=== PATIENT | male | born 1980 | race Caucasian/White ===

== ENCOUNTER 2020-08-12 21:03 | Emergency (ER) | payer OTHER ==
[~2020-08-12] VITALS: Ht 185.4 cm; Wt 99.8 kg
[2020-08-12 21:20] VITALS: BP_SYST 136; BP_SYST 138; BP_DIAS 86
[2020-08-12] MEDS ORDERED: LIDOCAINE 1% VIAL ONE (21:25)
[2020-08-12] MEDS ORDERED: TRIPLE ANTIBIOTIC OINTMENT TP ONE (21:27)
[2020-08-12 21:28] VITALS: BP_SYST 138
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
[2020-08-12] MEDS ORDERED: ADACEL VIAL IM ONE ×2 (21:30→22:02)
--- NOTE | 2020-08-12 21:34 | NUR ---
LACERATION REPAIR DR. MARK AT BEDSIDE TO CLOSE LACERATION WITH SUTURES.
[2020-08-12] MEDS ORDERED: KEFLEX PO STA (21:55)
[2020-08-12] MEDS ORDERED: KEFLEX PO ONE (22:02)
== END 2020-08-12 22:18 | disposition home or self-care (01) ==
LOC: ER 21:03
DX: S01.511A Laceration without foreign body of lip, initial encounter (principal); S09.90XA Unspecified injury of head, initial encounter; W22.8XXA Striking against or struck by other objects, initial encounter; Y93.89 Activity, other specified; Y92.098 Other place in other non-institutional residence as the place of occurrence of the external cause; Y99.8 Other external cause status
CPT/HCPCS: 12013; 90471; 90715; 99283; J2001

== ENCOUNTER → 2021-03-01 | Outpatient (CLI) | payer OTHER ==
[2021-03-01 10:12] LABS: BASOPHIL % 0.4 % (0.0-0.2); EOSINOPHIL # 0.2 10^3/uL (0.0-0.2); EOSINOPHIL % 2.9 % (0.0-5.0); LYMPHOCYTES # 1.48 10^3/uL1 (1.0-4.8); LYMPHOCYTES % 26.9 % (24.0-44.0); MEAN CORP HGB 29.5 pg (26-34); MONOCYTES # 0.5 10^3/uL (0.3-0.8); MONOCYTES % 9.1 % (5.0-12.0); NEUTROPHIL # 3.3 10^3/uL (1.8-7.7); NEUTROPHILS % 60.5 % (41.0-85.0); PLATELET COUNT 307 10^3/uL (150-400); RED CELL DISTRIBUTION WIDTH 12.7 % (11.5-14.5)
[2021-03-01 10:56] LABS: CALCIUM 8.9 mg/dL (8.4-10.5); CARBON DIOXIDE 27.4 mmol/L (20.0-32)
== END | disposition home or self-care (01) ==
LOC: LAB 09:58
PROVIDERS: ATTEND Nurse Practitioner Adult Health
DX: Z12.5 Encounter for screening for malignant neoplasm of prostate (principal); R53.83 Other fatigue; R68.82 Decreased libido; F34.1 Dysthymic disorder; R03.0 Elevated blood-pressure reading, without diagnosis of hypertension
CPT/HCPCS: 36415; 80053; 80061; 84153; 84403; 84436; 84439; 84443; 85025

== ENCOUNTER → 2021-04-19 | Outpatient (CLI) | payer OTHER | END | disposition home or self-care (01) | LOC: NPLAB 08:06 | PROVIDERS: ATTEND Nurse Practitioner Adult Health | DX: R53.83 Other fatigue (principal); R68.82 Decreased libido | CPT/HCPCS: 36415; 84402; 84403 ==

== ENCOUNTER 2021-06-10 18:01 | Emergency (ER) | payer OTHER ==
[2021-06-10] VITALS (7 sets, daily range): BP systolic 143–191; BP diastolic 75–86
[~2021-06-10] VITALS: Ht 185.4 cm; Wt 99.8 kg
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
--- NOTE | 2021-06-10 18:35 | NUR ---
Patient to CT scan, transported on wheelchair by Electrical Systems Drafter. no acute distress noted.
--- NOTE | 2021-06-10 18:48 | NUR ---
Patient back from CT scan sitting up comfortably on the stretcher, connected to microelectronics technician, c-collar in place, no acute distress noted.
--- NOTE | 2021-06-10 18:51 | DIREP ---
PROCEDURE: CT SPINE CERVICAL W/O COMPARISON:None. INDICATIONS:HEAD INJURY FINDINGS: ALIGNMENT:Normal. VERTEBRAE:Normal. DISC SPACES:Posterior disc osteophytic changes and left uncinate hypertrophy C5/6 with moderate left foraminal narrowing. PARASPINAL AREA:Normal. OTHER:No additional findings. CONCLUSION:No acute bony abnormality. Dictated by: Ade Cunningham MD on 06/10/2021 at 06:45 PM
--- NOTE | 2021-06-10 18:55 | DIREP ---
PROCEDURE:CT HEAD WITHOUT CONTRAST TECHNIQUE:Axial cuts were obtained through the head, without intravenous contrast material. The images were viewed at brain and bone settings. COMPARISON:None. INDICATIONS:HEAD INJURY FINDINGS: VENTRICLES:Normal. CEREBRUM:There is no evidence of intraparenchymal or extra-axial hemorrhage. No focal mass effect or midline shift is demonstrated. CEREBELLUM:Normal. BRAINSTEM:Normal. SKULL:Normal. SINUSES:Mucosal thickening is demonstrated in the left and right maxillary antra an within the ethmoid sinuses. No fluid levels are seen. OTHER:There appearsto be a small scalp hematoma in the superior or parietal region in the midline. CONCLUSION: 1. Normal CT scan of the brain . Dictated by: Sean Kang M.D. on 06/10/2021 at 06:51 PM
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
== END 2021-06-10 20:00 | disposition home or self-care (01) ==
LOC: ER 18:01
DX: S10.93XA Contusion of unspecified part of neck, initial encounter (principal); S09.90XA Unspecified injury of head, initial encounter; W17.89XA Other fall from one level to another, initial encounter; Y93.89 Activity, other specified; Y92.89 Other specified places as the place of occurrence of the external cause; Y99.8 Other external cause status
CPT/HCPCS: 70450; 72125; 99285

== ENCOUNTER → 2021-08-02 | Outpatient (CLI) | payer OTHER | END | disposition home or self-care (01) | LOC: NPLAB 11:05 | PROVIDERS: ATTEND Nurse Practitioner Adult Health | DX: Z79.899 Other long term (current) drug therapy (principal) | CPT/HCPCS: 36415; 84402; 84403 ==

== ENCOUNTER 2021-10-19 15:25 | Emergency (ER) | payer OTHER ==
[~2021-10-19] VITALS: Ht 185.4 cm; Wt 99.8 kg
--- NOTE | 2021-10-19 16:50 | NUR ---
Pt ambulatory to ED rm5. Mild distress noted. Pt c/o pain in throat with swallowing x3 weeks. Congestion and coughing increased recently. Pt states 'flu-like' symptoms. VS recorded.
[2021-10-19 16:52] VITALS: BP 147/95
[2021-10-19 18:02] LABS: MEAN CORP HGB 29.1 pg (26-34); RED CELL DISTRIBUTION WIDTH 14.4 % (11.5-14.5)
--- NOTE | 2021-10-19 18:07 | ER.PDOC ---
General Chief Complaint: Requesting Medical Care Stated Complaint: SORE THROAT, COUGH Time seen by MD: 18:02 Source: patient Exam Limitations: no limitations History of Present Illness Initial Comments Sore throat for 1 month, cough and runny nose for 2 days. No fever or chills. Timing/Duration: gradual Associated Symptoms: mod sore throat, runny nose, congestion, cough Severity: moderate Allergies: Coded Allergies: No Known Allergies (Unverified , 08/12/20) Past Medical History Medical History: no pertinent history Surgical History: no surgical history Family History Significant Family History: no pertinent family hx Social History Smoking: non-smoker Alcohol Use: none Drug Use: none Constitutional: no symptoms reported Nose: see HPI Throat: see HPI Respiratory: see HPI Cardiovascular: no symptoms reported Gastrointestinal: no symptoms reported All Other Systems: Reviewed and Negative Physical Exam General Appearance: alert, no distress Head/Neck: head nml inspection, neck nml inspection, trachea midline, no lymphadenopathy, thyroid nml Mouth: lips, gums nml, no drooling, no thrush, membranes nml Throat: pharyngeal erythema Ears/Nose: nml inspection Respiratory: no resp. distress, lungs clear CVS: reg. rate & rhythm, heart sounds nml Abdomen: non-tender, no organomegaly Extremities: non-tender, ROM nml Skin Exam: Normal Color, Warm/Dry NEURO/PSYCH: oriented X3, mood/effect nml Results/Orders Results/Orders Orders - LYN VERA MD Cbc W/O Diff (10/19/21 17:47) Strep Screen (10/19/21 17:47) Covid19 Antigen Tessy Kamla (10/19/21 17:47) Influenza A&B (10/19/21 17:47) Monotest (10/19/21 17:47) Vital Signs Date Time Temp Pulse Resp B/P (MAP) Pulse Ox O2 Delivery O2 Flow Rate FiO2 10/19/21 16:52 98.0 66 18 10/19/21 16:52 98.0 66 18 98 10/19/21 16:52 98.0 66 18 98 Room Air Laboratory Tests Test 10/19/21 17:33 10/19/21 18:00 Influenza Type A Antigen NEGATIVE (NEG) Influenza Type B Antigen NEGATIVE (NEG) SARS-CoV-2 Antigen (Rapid) NEGATIVE (NEGATIVE) Group A Streptococcus Screen NEGATIVE (NEGATIVE) White Blood Count 10.2 10^3/uL (4.5-11.0) Red Blood Count 5.74 10^6/uL (4.50-5.90) Hemoglobin 16.7 g/dL (13.9-16.3) H Hematocrit 51.8 % (37.0-53.0) Mean Corpuscular Volume 90.2 fL (78-100) Mean Corpuscular Hemoglobin 29.1 pg (26-34) Mean Corpuscular Hemoglobin Concent 32.2 g/dL (33-36.5) L Red Cell Distribution Width 14.4 % (11.5-14.5) Platelet Count 303 10^3/uL (150-400) Mean Platelet Volume 9.4 fL (7.8-11.0) Monoscreen NEGATIVE (NEGATIVE) Progress Progress CBC is normal, strep negative, Covid negative, flu A&B negative and mono test negative. ER DEPART Departure Time of Disposition: 18:38 Disposition: 01 HOME / SELF CARE / HOMELESS Impression: Primary Impression: Pharyngitis Qualified Codes: J02.9 - Acute pharyngitis, unspecified Additional Impression: Acute URI Condition: Stable Referrals: PCP,UNKNOWN (PCP) PRIMARY CARE PROVIDER Additional Instructions: Amoxil Prednisone Mucinex DM [id number] as directed Follow-up with your PCP in 1 week Return to ED if worsening symptoms or concerns Duration or Time Spent with Pa: 10 min LYN VERA MD Oct 19, 2021 18:07
--- NOTE | 2021-10-19 18:28 | NUR ---
REPORT REPORT GIVEN TO ONCOMING SHIFT.
[2021-10-19 18:45] VITALS: BP 145/95
== END 2021-10-19 18:41 | disposition home or self-care (01) ==
LOC: ER 15:25
DX: J02.9 Acute pharyngitis, unspecified (principal); J06.9 Acute upper respiratory infection, unspecified; Z20.822 Contact with and (suspected) exposure to COVID-19
CPT/HCPCS: 85027; 86308; 87070; 87426; 87804; 87880; 99283

== ENCOUNTER → 2022-01-01 | Outpatient (CLI) | payer OTHER | END | disposition home or self-care (01) | LOC: NPLAB 09:53 | PROVIDERS: ATTEND Nurse Practitioner Adult Health | DX: M25.50 Pain in unspecified joint (principal) | CPT/HCPCS: 80307 ==

== ENCOUNTER → 2023-09-22 | Outpatient (CLI) | payer SELFPAY ==
[2023-09-22 07:36] LABS: BASOPHIL % 0.6 % (0.0-0.2); EOSINOPHIL # 0.3 10^3/uL (0.0-0.2); EOSINOPHIL % 3.7 % (0.0-5.0); HEMATOCRIT(ML) 48.5 % (37.0-53.0); HEMOGLOBIN 16.1 g/dL (13.9-16.3); LYMPHOCYTES # 2.39 10^3/uL1 (1.0-4.8); LYMPHOCYTES % 35.8 % (24.0-44.0); MEAN CORP HGB 29.1 pg (26-34); MEAN CORP HGB CONCENTRATION 33.2 g/dL (33-36.5); MEAN CORP VOLUME 87.7 fL (78-100); MONOCYTES # 0.9 10^3/uL (0.3-0.8); MONOCYTES % 12.9 % (5.0-12.0); NEUTROPHIL # 3.1 10^3/uL (1.8-7.7); NEUTROPHILS % 46.9 % (41.0-85.0); PLATELET COUNT 311 10^3/uL (150-400); RED BLOOD CELL 5.53 10^6/uL (4.50-5.90); RED CELL DISTRIBUTION WIDTH 14.5 % (11.5-14.5); WHITE BLOOD CELL 6.7 10^3/uL (4.5-11.0)
[2023-09-22 07:39] LABS: +ADD MANUAL DIFF(NO CHRG) NO
[2023-09-22 07:56] LABS: ALBUMIN(ML) 3.1 g/dL (3.4-5.0); ANION GAP 11.1; BUN/CREATININE RATIO 12.21 (10.0-20.0); CALCIUM 8.7 mg/dL (8.4-10.5); CARBON DIOXIDE 28.1 mmol/L (20.0-32); CREATININE SERUM 1.31 mg/dL (0.59-1.40); EST GFR, NON-AA 59.7 (>/=60); LDL/HDL RATIO 3.2; POTASSIUM 4.2 mmol/L (3.6-5.2)
== END | disposition home or self-care (01) ==
LOC: NPLAB 07:02
PROVIDERS: ATTEND Family Medicine
DX: Z00.00 Encounter for general adult medical examination without abnormal findings (principal)
CPT/HCPCS: 36415; 80053; 80061; 84443; 85025